=== PATIENT | female | born 1985 | race Caucasian/White ===

== ENCOUNTER 2021-03-12 11:01 | Outpatient (CLI) | payer OTHER, SELFPAY ==
--- NOTE | ~2021-03-12 | US_ITS ---
EXAMINATION: US thyroid EXAM DATE: 03/12/2021 11:34 INDICATION: Nontoxic goiter. TECHNIQUE: Multiple grayscale and Doppler images of the thyroid were obtained (by a technologist who performed the scan) and subsequently reviewed. Individual nodules and recommendations may be reporte d in accordance with TI-RADS system as designated by the 2017 ACR White Paper TI-RADS committee. The re is no prior study for comparison. FINDINGS: The right thyroid lobe measures 4.1 x 1.5 x 1.3 cm, the left measuring 3.0 x 1.4 x 0.9 cm. Mildly dif fusely heterogeneous thyroid echogenicity. There are scattered subcentimeter anechoic thyroid lesions consistent with benign histology. No biops y indicated. IMPRESSION: Small thyroid cysts, benign. Reviewed, dictated and finalized at location A. ESS TRAINER
== END 2021-03-12 11:02 | disposition home or self-care (01) ==
LOC: ANHIMG 11:09
PROVIDERS: PCP Internal Medicine Endocrinology, Diabetes & Metabolism; Visit Provider Internal Medicine Endocrinology, Diabetes & Metabolism
DX: E04.1 Nontoxic single thyroid nodule (principal)
CPT/HCPCS: 76536

== ENCOUNTER 2023-08-14 09:59 | Outpatient (CLI) | payer OTHER, SELFPAY ==
--- NOTE | ~2023-08-14 | MM_ITS ---
EXAMINATION: MM screening wendy BI w tisha HISTORY: Screening mammogram TECHNIQUE: Craniocaudal and mediolateral oblique 3-D tomosynthesis images were obtained and synthetic 2-D images were generated. CAD analysis was submitted and interpreted. COMPARISON: Baseline examination. No prior mammogram is available for comparison at this institution. BREAST PARENCHYMAL COMPOSITION: There are scattered areas of fibroglandular density. FINDINGS: Bilateral mammographic asymmetries are noted on this reportedly baseline examination; witho ut prior mammograms for comparison, further workup is recommended, including bilateral diagnostic wendy mography, with ultrasound if required. IMPRESSION: 1. Bilateral mammographic asymmetries on baseline examination 2. Bilateral diagnostic mammogram is recommended with ultrasound if required BI-RADS Category 0: Incomplete: Needs additional imaging evaluation. Reviewed, dictated and finalized at location A.
== END 2023-08-14 10:00 ==
LOC: MICIMG 10:04
PROVIDERS: PCP Nurse Practitioner; Visit Provider Nurse Practitioner
DX: Z12.31 Encounter for screening mammogram for malignant neoplasm of breast (principal); R92.8 Other abnormal and inconclusive findings on diagnostic imaging of breast
CPT/HCPCS: 77063; 77067

== ENCOUNTER 2023-09-14 08:39 | Outpatient (CLI) | payer OTHER, SELFPAY ==
--- NOTE | ~2023-09-14 | MM_ITS ---
EXAMINATION: MM diagnostic wendy BI w tisha HISTORY: Bilateral asymmetries TECHNIQUE: Additional spot compression 3-D tomosynthesis images of the bilateral breasts were perform ed and synthetic 2-D images were generated. CAD analysis was submitted and interpreted. COMPARISON: 08/14/2023 FINDINGS: There are scattered fibroglandular densities. The areas of asymmetry at the upper, outer ri ght breast and upper, inner left breast demonstrate relative effacement with spot compression. No mas s lesion or suspicious distortion are identified. No suspicious microcalcifications are seen. IMPRESSION: No mammographic evidence for malignancy. BI-RADS Category 1: Negative Reviewed, dictated and finalized at location .
== END 2023-09-14 08:40 ==
LOC: MICIMG 08:40
PROVIDERS: PCP Internal Medicine; Visit Provider Obstetrics & Gynecology Gynecology
DX: R92.8 Other abnormal and inconclusive findings on diagnostic imaging of breast (principal)
CPT/HCPCS: 77062; 77066; G0279

== ENCOUNTER 2024-08-16 07:29 | Outpatient (CLI) | payer OTHER, SELFPAY ==
--- NOTE | ~2024-08-16 | MM_ITS ---
EXAMINATION: MM screening wendy BI w tisha HISTORY: Screening TECHNIQUE: Craniocaudal and mediolateral oblique 3-D tomosynthesis images were obtained and synthetic 2-D images were generated. CAD analysis was submitted and interpreted. COMPARISON: Comparison to multiple prior studies sequentially, with oldest reviewed study dated 08/13. BREAST PARENCHYMAL COMPOSITION: Not dense: There are scattered areas of fibroglandular density. FINDINGS: Stable bilateral nodular asymmetries. There is no evidence of suspicious mass, calcificatio n, or architectural distortion to suggest malignancy in either breast. There has been no suspicious i nterval change. IMPRESSION: 1. No mammographic evidence of malignancy. 2. Recommend routine screening mammography in one year. BI-RADS Category 1: Negative Reviewed, dictated and finalized at location A.
== END 2024-08-16 07:30 | disposition home or self-care (01) ==
LOC: MICIMG 07:30
PROVIDERS: PCP Internal Medicine; Visit Provider Nurse Practitioner
DX: Z12.31 Encounter for screening mammogram for malignant neoplasm of breast (principal)
CPT/HCPCS: 77063; 77067

== ENCOUNTER 2024-09-05 10:17 | Outpatient (CLI) | payer OTHER, SELFPAY ==
--- NOTE | ~2024-09-05 | US_ITS ---
Pelvic ultrasound. Clinical History: Pelvic pain Technique: Realtime transabdominal and transvaginal scanning of the pelvis was performed. Color flow Doppler and Doppler spectral analysis were performed. Findings: The uterus is anteverted. The endometrial stripe has a thickness of 7 mm. No focal myometr ial mass is identified. Cervical nabothian cysts are present. The right ovary measures 2.9 x 2.6 x 2.5 cm. No significant right ovarian or adnexal mass is seen. The left ovary measures 2.3 x 1.7 x 2.0 cm. No significant left ovarian or adnexal mass is seen. There is no evidence of free fluid in the cul de sac. Impression: No significant abnormality. Reviewed, dictated and finalized at [facility]. Impression: No significant abnormality.
== END 2024-09-05 10:18 | disposition home or self-care (01) ==
LOC: MICIMG 10:18
PROVIDERS: PCP Internal Medicine; Visit Provider Nurse Practitioner
DX: R10.2 Pelvic and perineal pain (principal)
CPT/HCPCS: 76830

== ENCOUNTER 2025-03-11 10:48 | Outpatient (CLI) | payer OTHER, SELFPAY ==
--- NOTE | ~2025-03-11 | US_ITS ---
EXAM/PROCEDURE: US pelvic complete w TV HISTORY: Pelvic mass COMPARISON: September 05, 2024 TECHNIQUE: Endovaginal pelvic ultrasound LMP: February 20, 2025. FINDINGS: The uterus measures 9.6 x 4.1 x 4.8 cm and appears normal. Endometrial stripe: 9 mm Solid area in the cervical region just to the left of midline measures 2.6 x 1.9 x 2.3 cm. The right ovary measures 2.8 x 2.0 x 2.6 cm The left ovary measures 2.3 x 1.6 x 2.4 cm 6 x 6 mm echogenic focus in the left ovary may represent small area of hemorrhage or calcification. Both ovaries otherwise appear normal in echotexture and vascular flow. IMPRESSION: 1. A 2.6 x 1.9 x 2.3 cm mass just to the left of midline adjacent to the cervix. Etiology is uncertain but neoplastic lesion is not excluded. Consider correlation with follow-up contrast-enhanced pelvic MRI. 2. Probable small hemorrhagic cyst in the left ovary. Reviewed, dictated and finalized at location A. NSIONAL INSPECTOR IMPRESSION: 1. A 2.6 x 1.9 x 2.3 cm mass just to the left of midline adjacent to the cervix . Etiology is uncertain but neoplastic lesion is not excluded. Consider correla tion with follow-up contrast-enhanced pelvic MRI. 2. Probable small hemorrhagic cyst in the left ovary.
== END 2025-03-11 10:49 | disposition home or self-care (01) ==
LOC: MICIMG 10:50
PROVIDERS: PCP Internal Medicine
DX: N88.9 Noninflammatory disorder of cervix uteri, unspecified (principal)
CPT/HCPCS: 76830; 76856